=== PATIENT | male | born 1970 | race Caucasian/White ===

== ENCOUNTER 2021-09-20 09:26 | Emergency (ER) | payer OTHER ==
[2021-09-20 09:47] VITALS: TEMP 98.4; BMI 26.4
[2021-09-20] MEDS ORDERED: METOCLOPRAMIDE HCL INJECTION 10 MG/2 ML VIAL IVPUSH ONE (10:19)
[2021-09-20] MEDS ORDERED: SODIUM CHLORIDE 1,000 ML IV STA (10:19)
[2021-09-20] MEDS ORDERED: ACETAMINOPHEN 500 MG TABLET (FP) ONE (10:31)
[2021-09-20] MEDS ORDERED: METOCLOPRAMIDE HCL INJECTION 10 MG/2 ML VIAL ONE (10:31)
[2021-09-20] MEDS ORDERED: ACETAMINOPHEN 500 MG TABLET (FP) PO ONE (10:42)
[2021-09-20 11:50] VITALS: BP 110/62; PULSE 86
[2021-09-21 12:07] LABS: SARS-CoV-2 NAA Not Detected (Not Detected)
== END 2021-09-20 11:50 | disposition home or self-care (01) ==
LOC: JERFT 09:26
PROC: 3E033GC Introduction of Other Therapeutic Substance into Peripheral Vein, Percutaneous Approach (ICD-10-PCS; principal; 2021-09-20)
PROC: 3E0337Z Introduction of Electrolytic and Water Balance Substance into Peripheral Vein, Percutaneous Approach (ICD-10-PCS; 2021-09-20)
DX: R05.1 Acute cough (principal); M79.10 Myalgia, unspecified site
CPT/HCPCS: 87804; 87807; 99284-25; C9803-CS; U0003; U0005